=== PATIENT | male | born 1990 | race African-American/Black ===

== ENCOUNTER 2021-05-14 22:36 | Emergency (ER) | payer OTHER ==
[~2021-05-14] VITALS: Ht 177.8 cm; Wt 65.8 kg
[2021-05-15 01:32] VITALS: BP 166/92
== END 2021-05-15 01:32 | disposition home or self-care (01) ==
LOC: M.ERS 22:36
DX: S01.412A Laceration without foreign body of left cheek and temporomandibular area, initial encounter (principal); Y08.89XA Assault by other specified means, initial encounter; Y93.89 Activity, other specified; Y92.89 Other specified places as the place of occurrence of the external cause; Y99.8 Other external cause status